=== PATIENT | male | born 1980 | race African-American/Black ===

== ENCOUNTER 2024-04-26 16:28 | Emergency (ER) | payer OTHER ==
[2024-04-26 16:47] VITALS: BP 106/68; PULSE 84; RESP 18; TEMP 98.5; BMI 22.8
== END 2024-04-26 17:46 | disposition home or self-care (01) ==
LOC: JERFT 16:28
DX: L72.9 Follicular cyst of the skin and subcutaneous tissue, unspecified (principal)
CPT/HCPCS: 99283-25